=== PATIENT | female | born 1980 | race Caucasian/White ===

== ENCOUNTER 2017-01-19 18:10 | Emergency (ER) | payer OTHER, MEDICARE ==
[~2017-01-19 18:10] MED LIST: ALPR0.5T8 PO; CHOL200049 PO; FOLI1TAB18 PO; HYDR25CA PO; IMI100 PO; LANS30CA14 PO; LEVO200T PO; METF500T4 PO; MORP30TA PO; MULT-1018 PO; NORE0.354 PO; OXYC-245 PO; OXYC10TA8 PO; TOPROL PO; XANAFLEX PO
[2017-01-19 18:11] VITALS: BP 157/98; PULSE 80; RESP 20; O2SAT 97
--- NOTE | 2017-01-19 20:04 | ED.REPORT ---
HPI-Headache Date of Service Jan 19, 2017 ED Provider: Matti Fung MD Pt is a 36 y/o female w/ a hx of HTN, migraines presenting to the ED c/o retro- ocular right sided migraine headache onset today. She has been experiencing intermittent migraines for a long time, her last migraine was 1 month ago. Her migraine did not respond to Imitrex x2 today. She c/o associated nausea, mild vomiting x1 episode, photophobia, mild bilateral vision change. She denies dysphagia, dysphasia, dysarthria, focal numbness or weakness, fever, neck pain. Nursing Notes Stated Complaint: MIGRAINE Chief Complaint: Headache Nursing Notes Reviewed: Yes Allergies: Coded Allergies: No Known Allergies (Unverified Allergy, Unknown, 01/19/17) Scheduled ([toprol xl]) 100 MG PO DAILY ([Xanaflex]) 4 MG PO HS Cholecalciferol (Vitamin D3) (Vitamin D-3) 2,000 Unit Tablet 2,000 UNIT PO DAILY Folic Acid (Folic Acid) 1 Mg Tablet 1 MG PO QID Lansoprazole DR (Prevacid) 30 Mg Capsule.dr 30 MG PO DAILY Levothyroxine (Synthroid) 200 Mcg Tablet 200 MCG PO DAILY Metformin (Metformin) 500 Mg Tablet 500 MG PO DAILYWM Morphine Sulfate (Morphine Sulfate) 30 Mg Tablet 30 MG PO BID Multivitamin (Multi Vitamin Daily) 1 Each Tablet 1 EACH PO DAILY Norethindrone (Nor-Q-D) 0.35 Mg Tablet 0.35 MG PO DAILY oxyCODONE (oxyCODONE) 10 Mg Tablet 10 MG PO BID Scheduled PRN Alprazolam (Alprazolam) 0.5 Mg Tablet 0.5 MG PO TID PRN PRN For Anxiety Hydroxyzine Pamoate (Vistaril) 25 Mg Capsule 25 MG PO Q6 PRN PRN For Spasm Metoclopramide (Reglan) 10 Mg Tablet 10 MG PO QID PRN PRN For Nausea Oxycodone HCl/Acetaminophen (Percocet 10-325 mg Tablet) 1 Each Tablet 1-2 EACH PO Q4 PRN PRN For Pain Sumatriptan (Imitrex) 100 Mg Tablet 100 MG PO PRN migraine General Time Seen by MD: 19:23 Chief Complaint Migraine headache Hx Obtained From: Patient Arrived By: Walk-in Sudden in Onset?: No Onset Occurred: 5 - 8 hours ago Symptom Duration: Since onset Location: : Retro orbital Quality: Painful Radiation: : Does not radiate Severity: Current: Moderate Severity: Maximum: Moderate Pertinent Negative: Relieved by nothing Recent Healthcare: Previous diagnosis Similar Sx Previous: Yes Past Medical History Past Medical History "pre-diabetic" anxiety chronic back pain (daily morphine, percocet) Hypertension Migraines GERD Past Surgical History shoulder, ankle, back surgery Smoking History Never Smoker Ambulatory Status Independent Review of Systems Constitutional: Denies: Chills, Fever Eyes: Reports: Photophobia GI: Reports: Nausea, Vomiting Musculoskeletal: Denies: Neck pain Neurologic: Reports: Headache, Vision change, Denies: Confusion, Focal weakness, Numbness, Slurred speech, Spinning sensation, Syncope, Unable to speak Complete sys rev & neg: except as marked. Physical Exam Initial Vital Signs Vital Signs (First) Date Time Temp Pulse Resp B/P Pulse Ox O2 Delivery O2 Flow Rate FiO2 01/19/17 18:11 36.2 80 20 157/98 97 Room Air Initial VS: Reviewed, Vital signs abnormal ENT: Mucous membranes moist, Conjunctiva normal, No scleral icterus Respiratory: Breath sounds normal, Clear to auscultation, No respiratory distress Cardiovascular: Regular rate & rhythm, Heart sounds normal, Intact distal pulses Abdomen / GI: Soft Extremities: Vascular intact, Neuro intact, No swelling, No tenderness Skin: Warm, Dry, No cyanosis Psychiatric: Mood/affect normal, Behavior normal, Normal thought content General/Constitutional: Awake, Alert, No acute distress, Well appearing, Cooperative, Not toxic appearing Sitting in dark room with sunglasses Head / Eyes: Atraumatic, Normocephalic, PERRL, EOMI Neck: Atraumatic, Supple, No meningismus, Full range of motion, No adenopathy Neurologic: Oriented X3, Speech NL, No motor deficits, No sensory deficits, CN II - XII intact, Cerebellar NL, Memory NL Interpretation & Diagnostics Lab Results Interpretation Test 01/19/17 20:30 Hold Urine Received (Received) Re-Eval/Medical Decision Med Decision/Clinical Course 36-year-old female history of migraine headaches presenting with typical migraine headache for her. She reports this is exactly like her previous migraine headaches. Her sumatriptan did not help enough today. Vital signs stable. No neurological deficits. No signs of meningitis. She was given 1 dose of Reglan and Toradol here and her headache improved significantly and she requested to be discharged home. She will take her home medications for pain should it recur. She was also given a prescription for Reglan to use as needed. Re-Evaluation/Progress : Time of Eval: 21:19 )( Patient Status: Condition improved, Moderate relief, Pain improved Evaluation: Mental status normal, Neurologic nonfocal Re-Evaluation/Progress Note: Pt rechecked. Informed pt of plan for treatment. Pt understands and agrees with plan for treatment. F/U instructions and RTER warnings given. All questions addressed. Counseled Regarding: Diagnosis, Lab results, Need for follow-up, When/why to return to ED Discharge & Departure Impression: Primary Impression: Migraine headache Migraine type: unspecified Status migrainosus presence: without status migrainosus Intractability: not intractable Qualified Code: G43.909 - Migraine, unspecified, not intractable, without status migrainosus Disposition: Home Discharge Condition All VS Reviewed: Yes Condition: Stable Patient Instructions: Migraine Headache (ED) Additional Instructions: I agree that your symptoms are being caused by a migraine headache. Take Reglan as directed. Return to the emergency department if you experience worsening pain, one-sided numbness or weakness, speech changes, fever, neck stiffness, persistent vomiting , or other concerning symptoms. Follow up with your primary care physician in 2 days. Referrals: Shiva Rodriguez MD (PCP) Mayuri Attestation Portions of this note were transcribed by Epifanio Brown. I, Dr. Fung, personally performed the history, physical exam and medical decision-making; I reviewed and confirmed the accuracy of the information in the transcribed note. Signed by Mayuri Tian, 01/19/172009 copies to: Shiva Rodriguez MD, Ben M MD Jan 19, 2017 20:04 EPIFANIO BROWN Jan 19, 2017 20:06
[2017-01-19] MEDS ORDERED: MetoCLOpramide 5 mg/mL 2 mL Inj IM ONE (20:15)
[2017-01-19] MEDS ORDERED: Ketorolac 30 mg/mL 2 mL Inj IM ONE (20:15)
[2017-01-19] MEDS ORDERED: METO-301 PO (21:18)
[2017-01-19 21:42] VITALS: BP 123/84; PULSE 70; RESP 18; O2SAT 96
== END 2017-01-19 21:44 | disposition home or self-care (01) ==
LOC: SED 18:10
DX: G43.909 Migraine, unspecified, not intractable, without status migrainosus (principal); I10 Essential (primary) hypertension; K21.9 Gastro-esophageal reflux disease without esophagitis; R73.03 Prediabetes; Z79.84 Long term (current) use of oral hypoglycemic drugs
CPT/HCPCS: 81025; 96372; 99284; J1885; J2765